=== PATIENT | male | born 1965 | race Caucasian/White ===

== ENCOUNTER → 2021-05-27 10:39 | Outpatient (CLI) | payer OTHER, SELFPAY ==
--- NOTE | 2021-05-27 | LES_PTH ---
PATIENT: EVANGELINA DAVIS LOC: [facility] U#:[id number] AGE/SX: 60/M ROOM: RE05/27/[address]: Dr. Andrei Bowers DDS : 1965 BED: DIS: SPEC #: [id number] RECD: 05/27/21 10:25 STATUS: MICHELLE CLEO #: [id number] KEVIN: 05/27/21 00:[address]: Andrei Bowers DEPT: SURGICAL PATHOLOGY RECD BY: Tiera Cesar Tissues: Skin of lip, NOS Procedures: Surgery Specimen Level IV HEADER OPERATION: Biopsy lower lip PRE-OP DIAGNOSIS: Bluish nodule, change in size; probable mucous gland TISSUE SUBMITTED: Lower lip MICROSCOPIC DIAGNOSIS Lesion of left lower lip, biopsy: Consistent with capillary hemangioma. AM:aleyda 05/28/2021 MICROSCOPIC DESCRIPTION Slides are reviewed. GROSS DESCRIPTION Received in fixative is one container labeled with the patient's name and designated lip. The specimen consists of an irregular fragment of light gaspar soft tissue measuring 0.2 x 0.2 x 0.1 cm. The specimen is totally submitted in one cassette. / AM:aleyda 05/27/21 TC:5 CPT: 67379
--- NOTE | 2021-06-04 16:14 | OP.PCM_ITS ---
Report of Operation Date of Procedure: 06/04/21
--- NOTE | 2021-06-04 16:14 | PCM.OPRPT ---
Report of Operation Date of Procedure: 06/04/21
== END ==
PROVIDERS: Visit Provider Dentist Oral and Maxillofacial Surgery
DX: I78.1 Nevus, non-neoplastic (principal)
CPT/HCPCS: 88305

== ENCOUNTER 2025-08-01 08:22 | Day surgery (SDC) | payer OTHER, SELFPAY ==
--- NOTE | 2025-07-27 13:46 | RAD_ITS ---
PROCEDURE: CHEST PA AND LATERAL 07/27/2025 REASON FOR EXAM: PRIOR TO HEART CATH TECHNIQUE: Procedure Code: RADCXR Modality: DX Procedure: CHEST PA AND LATERAL COMPARISON: None. FINDINGS: LUNGS AND PLEURA: The lungs are clear. No pleural effusion or pneumothorax. HEART AND MEDIASTINUM: The heart size and mediastinal contours are normal. BONES: No acute osseous abnormality. OTHER: Mild eventration of the right hemidiaphragm. RAD/Chest PA and Lateral IMPRESSION: NO ACUTE FINDINGS. Reading Location: [id number]
[2025-07-27 13:58] LABS: Hematocrit 37.7 % (40-54); Hemoglobin 12.6 g/dL (13.0-16.5); Immature Granulocytes Count 0.010 X10^3/uL (0.0-0.0); Mean Corp Hgb Conc 33.4 g/dL (32-36); Mean Corpuscular Volume 90.4 fL (80-94); Mean Platelet Vol. 10.8 fl (6.2-12.0); NRBC Flagged by Analyzer 0 % (0-5); Platelet Count 210 K/mm3 (150-450); RBC Distribution Width CV 12.5 % (11.6-14.6); RBC Distribution Width SD 41.6 fl (35.1-43.9); Red Blood Count 4.17 M/mm3 (4.6-6.2); White Blood Count 5.2 K/mm3 (4.4-11.0)
[2025-07-27 14:15] LABS: Prothrombin Time (Protime)PT. 13.5 SECONDS (11.7-14.9)
[2025-07-27 14:16] LABS: Partial Thromboplast Time 27.0 Seconds (24.1-36.2)
[2025-07-31 10:05] LABS: Anion Gap 11 (5-15); BUN 19 mg/dL (4-19); BUN/Creat Ratio 25.3 RATIO (10-20); Calcium,Total 9.5 mg/dL (7.6-11.0); Carbon Dioxide 22.9 mmol/L (21.0-32.0); Chloride 106 mmol/L (98-108); Glucose 91 mg/dL (70-99); Potassium 5.0 mmol/L (3.3-5.1)
[2025-07-31 10:08] VITALS: BMI 26.1
[2025-07-31 10:10] VITALS: BMI 31.7
--- NOTE | 2025-08-01 10:41 | CL.D_ITS ---
Patient Name: EVANGELINA DAVIS Study Date: 08/01/2025 Performing: Connor Mukherjee MD Ht: 68 inches 172.72 cm : 1965 Wt: 209 lbs 94.8 kg Age: 59 Gender: male BSA: 2.08 PROCEDURE(S) PERFORMED DC01-(02076)LHC/COR/LV CLINICAL PROFILE AND INDICATIONS Indications: Suspected CAD Heart Failure: None Stress/Imaging Standard Exercise Stress Test: Yes Result: Positive Intermediate Risk CAD Presentations: Other: Dyspnea CONCLUSIONS Mild Mid LAD disease LVEDP 18 mm Hg RECOMMENDATIONS Risk factor modification DESCRIPTION OF PROCEDURE The patient arrived to the procedure lab. The risks and benefits of the procedure as well as a full description of our services here and current unavailability of surgical backup were fully explained to the patient and/or their significant other prior to the catheterization. The Timeout was completed, verifying the correct patient and procedure. The patient's procedural site was prepped and draped in the usual fashion. Local anesthetic was given subcutaneously to right radial region with Lidocaine 2%. Using a modified Seldinger technique, arterial access was obtained via the right radial artery, a 6Fr sheath was inserted. Left Coronary Artery selective angiography was performed in multiple views using a 5 Fr. JL3 catheter. Right Coronary Artery selective angiography was then performed in multiple views using a 5 Fr. 3DRC (Girish) catheter. Right Coronary Artery selective angiography was then performed in multiple views using a 5 Fr. JR 4 catheter.The arterial sheath was pulled and a TR Band was applied for hemostasis 10 cc air CORONARY ANGIOGRAPHY DOMINANCE: Right Dominant LEFT HEART ASSESSMENT LVEDP: 18 mmHg LEFT MAIN: Angiographically normal LEFT ANTERIOR DESCENDING ARTERY: LAD: Tubular 20% Mid lesion in LAD Tubular 30% Mid lesion in LAD CIRCUMFLEX ARTERY: Angiographically normal RIGHT CORONARY ARTERY: Angiographically normal COMPLICATIONS No Complications PROCEDURE MEDICATIONS Fentanyl 50 mcg IV Versed 1 mg IV Oxygen: 2 L/min via nasal cannula Heparin given IA 08/01/2025 10:09:10 Verapamil 2.5mg, Ntg 200mcgs, 2000 units of Heparin given IA 08/01/2025 10:09:10 IV Bolus: .9 NaCl 250 ml total 08/01/2025 10:30:06 SUMMARY OF HEMODYNAMIC DATA Time AIR REST ECG 08:37:34 AO 105/74 (88) SA 10:15:48 LV 100/15, 18 10:16:22 LVp 105/17, 22 10:16:41 AO 98/72 (84) 10:16:48 Signed By Connor Mukherjee MD On 08/01/2025 10:40:36 Connor Mukherjee MD
== END 2025-08-01 12:05 | disposition home or self-care (01) ==
PROVIDERS: PCP Registered Nurse; Referring Provider Internal Medicine Cardiovascular Disease; Visit Provider Internal Medicine Cardiovascular Disease
DX: I25.10 Atherosclerotic heart disease of native coronary artery without angina pectoris (principal); R94.39 Abnormal result of other cardiovascular function study; Z79.82 Long term (current) use of aspirin; E78.5 Hyperlipidemia, unspecified
CPT/HCPCS: 36415; 71046; 80048; 85025; 85610; 85730; 93458; 99152; 99153; Q9967; C1769; C1894